=== PATIENT | male | born 1980 | race Caucasian/White ===

== ENCOUNTER → 2016-05-19 | Emergency (ER) | payer OTHER ==
[2016-05-19 11:19] VITALS: BP 122/94; PULSE 63; RESP 16; TEMP 98.4; O2SAT 97
--- NOTE | 2016-05-19 11:55 | UCPHY ---
H & P Time Seen by Provider: 05/19/16 11:32 Patient Type: New HPI/ROS: This patient has panic attack history but had not had 1 since 2002 when his father . He reports having an episode at 12:30 a.m. that will shortly after awakening with onset of shortness of breath panic feeling diaphoresis paresthesias in his arms. He walks his dog and over course of 2 hours the symptoms abated. 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 All of his symptoms have now resolved. 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 He also reports a long history of insomnia typically getting 4 hours a night occasionally 6 hours a night in his sleep has been disrupted by his toddler recently. ROS: No fevers or chills. No other constitutional symptoms. HEENT: No complaints endocrine: No polyuria polydipsia or other complaints. Pulmonary: No dyspnea currently. Cardiovascular: No lightheadedness currently. GI: No nausea vomiting. 10 point ROS is otherwise negative. Past Medical/Surgical History: Previous panic attack Family history is negative for major depression, bipolar or substance abuse. Social History: Patient admits occasional marijuana use. The last use was last month. No alcohol. No tobacco. 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 He is has /2-year-old boy Smoking Status: Never smoked Physical Exam: General Appearance: Alert, no distress. Eyes: Pupils equal and round no pallor or injection. ENT, Mouth: Mucous membranes moist. Respiratory: There are no retractions, lungs are clear to auscultation. Cardiovascular: Regular rate and rhythm. Neurological: Alert with no focal sensory or motor deficits. Skin: Warm and dry, no rashes. Musculoskeletal: Neck is supple nontender. Extremities are symmetrical, full range of motion. Psychiatric: Mood and affect: Currently normal. No pressured speech. Normal rate of speech. Patient has some insight into his condition. DIFFERENTIAL DIAGNOSIS: After history and physical exam differential diagnosis was considered for panic, insomnia, doubt endocrine disorder other organic causes symptoms. Constitutional: Initial Vital Signs Temperature (C) 36.9 C 05/19/16 11:16 Heart Rate 63 05/19/16 11:16 Respiratory Rate 16 05/19/16 11:16 Blood Pressure 122/94 H 05/19/16 11:16 O2 Sat (%) 97 05/19/16 11:16 O2 Delivery Mode Room Air Allergies/Adverse Reactions: No Known Allergies Allergy (Unverified 05/19/16 11:15) Home Medications: Medication Instructions Recorded Ibuprofen 05/19/16 Propranolol HCl [Inderal 10mg (*)] 10 - 30 mg PO BID PRN #20 tab 05/19/16 Zaleplon [Sonata] 10 mg PO HS PRN #12 capsule 05/19/16 MDM/Departure - Depart Disposition: Home, Routine, Self-Care Clinical Impression: Panic attack Insomnia Qualifiers: Insomnia type: unspecified Qualified Code(s): G47.00 - Insomnia, unspecified Condition: Good Instructions: Insomnia (ED), Panic Attack (ED) Additional Instructions: Diagnoses: 1. Insomnia 2. Panic attack Plan: Sonata if needed for sleep Continue regular exercise including aerobic exercise return to 30 minutes a day Daily relaxation for 20-30 minutes a day Inderal if needed for panic attack that does not resolve with relaxation techniques described. Follow up with primary care physician-Dr. Dooley for any ongoing symptoms. Prescriptions: Propranolol HCl [Inderal 10mg (*)] 10 - 30 mg PO BID PRN #20 tab PRN Reason: panic/anxiety Zaleplon [Sonata] 10 mg PO HS PRN #12 capsule PRN Reason: insomnia Referrals: NONE *PRIMARY CARE P,. [Primary Care Provider] - As per Instructions Eleonora Dooley MD [Medical Doctor] - As per Instructions - PQRS PQRS Measurement: NA
== END | disposition home or self-care (01) ==
LOC: CED 10:45
DX: F41.0 Panic disorder [episodic paroxysmal anxiety] (principal); G47.00 Insomnia, unspecified
CPT/HCPCS: 99204-PO; G0463-PO

== ENCOUNTER → 2016-07-30 | Outpatient (CLI) | payer OTHER | LOC: BRMIMAGING 14:26 | PROVIDERS: ATTEND Specialist | DX: S93.401A Sprain of unspecified ligament of right ankle, initial encounter (principal) | CPT/HCPCS: 73610-PO ==